=== PATIENT | male | born 1970 | race African-American/Black ===

== ENCOUNTER 2017-07-17 05:23 | Day surgery (SDC) | payer OTHER ==
[~2017-07-17] VITALS: Ht 188 cm; Wt 129.7 kg
--- NOTE | ~2017-07-17 | EKG ---
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
--- NOTE | ~2017-07-17 | O ---
[facility] [place] [address] OPERATIVE REPORT Name: SAVANA OSBORN Room #: DEP [facility] M.R.#: [id number] Admission: 07/17/17 Attend Phys: Murray Munguia MD Discharge: 07/17/17 Date of : 66 Report #: [id number] THIS REPORT FOR: //name// CC: Arnulfo Hill DO Physician staff Murray Munguia DATE OF SERVICE: 07/17/[address] Murray Munguia, Dr. Arnulfo Hill. PREOPERATIVE DIAGNOSIS: Incarcerated umbilical hernia. POSTOPERATIVE DIAGNOSIS: Incarcerated umbilical hernia. PROCEDURE: Incarcerated umbilical hernia repair. SURGEON: Murray Munguia M.D. ANESTHESIA: Local IV sedation. DESCRIPTION OF PROCEDURE: The patient was brought to the operating room and placed on operative table in the supine position. Sequential compression devices were in place for DVT prophylaxis. There was no indication for preoperative antibiotics. The patient underwent IV sedation. The abdomen was then prepped and draped in a sterile fashion. Skin and subcutaneous tissue around the umbilicus was then infiltrated with 0.5% Marcaine and 1% Xylocaine in a 1:1 mixture. A transverse supraumbilical skin incision was then performed using #15 scalpel blade. Hemostasis obtained using electrocautery. Dissection was carried down through subcutaneous tissue to incarcerated preperitoneal hernia sac and preperitoneal fat was dissected free and reduced back into the abdomen. I was able to place a finger intraabdominally and palpate around. There was no evidence of any other hernia defects. I then dissected around the fascial edges and there were 2 small defects, one in the left lower and another on the right upper side with a small bridge of fascia in between each one of these two defects. These were dissected free and reduced back through the fascia into the preperitoneal space. The fascial defect was easily closed without any tension using interrupted [id number] #1 Prolene sutures. The umbilicus was then tacked to the fascia using an interrupted [id number] 2-0 chromic suture. Deep and superficial subcutaneous tissue was then reapproximated using simple interrupted 2-0 chromic sutures and the skin then closed with a running 4-0 subcuticular Vicryl stitch. The wound was then dressed with Dermabond, Telfa, 4 x 4 gauze, sponge and tape. The patient was then taken to the recovery room awake, alert and in good condition. [address] [address] OPERATIVE REPORT Name: SAVANA OSBORN Room #: DEP [facility].#: [id number] Admission: 07/17/17 Attend Phys: Murray Munguia MD Discharge: 07/17/17 Date of : 66 Report #: [id number] blood loss was approximately 5 mL and the patient tolerated procedure well. All sponge, lap and instrument counts correct x 2. <ELECTRONICALLY SIGNED> By: Murray Munguia MD 07/19/17 1511 1606 1621 Murray Munguia MD /nt
[~2017-07-17 05:23] MED LIST: ASPIR 8181 MG PO; CHLORTHALIDONE25 MG PO; COZAAR 25 MG TA25 M2 PO; CRESTOR20 MG PO; CRESTOR40 MG PO; FISH OIL 1,001000 M2 PO; FLOMAX0.4 MG PO; IBUPROFEN 800800 M1 PO; KLOR-CON 1010 MEQ PO; NORVASC10 MG PO; RANITIDINE 150150 M1 PO; TRAMADOL 50 MG50 MG PO; XANAX 0.25 MG0.25 MG PO
[2017-07-17 12:35] VITALS: BP 133/88
[2017-07-17 12:36] LABS: CALCIUM 9.1 mg/dL (8.5-10.1); CREATININE 0.9 mg/dL (0.7-1.3)
[2017-07-17 12:37] LABS: POTASSIUM 2.7 mmol/L (3.5-5.1)
[2017-07-17] MEDS ORDERED: PERCOCET PO (16:09)
[2017-07-17 16:24] VITALS: BP 133/88
== END 2017-07-17 16:58 | disposition home or self-care (01) ==
LOC: TBA 05:23 → OR 05:23
PROVIDERS: Surgery
DX: K42.0 Umbilical hernia with obstruction, without gangrene (principal); I10 Essential (primary) hypertension; E78.5 Hyperlipidemia, unspecified; F41.8 Other specified anxiety disorders; K21.9 Gastro-esophageal reflux disease without esophagitis; Z98.890 Other specified postprocedural states; Z87.442 Personal history of urinary calculi; Z79.82 Long term (current) use of aspirin; Z79.899 Other long term (current) drug therapy; Z79.891 Long term (current) use of opiate analgesic; Z88.8 Allergy status to other drugs, medicaments and biological substances
CPT/HCPCS: 50010; 50101; 50386; 50417; 54118; 56524; 56525; 56526; 62110; 62900; 70005